=== PATIENT | female | born 1985 | race Caucasian/White ===

== ENCOUNTER 2018-12-15 21:54 | Observation (INO) | payer OTHER, SELFPAY ==
--- OUTSIDE RECORDS SUMMARY | 2018-12-15 21:56 | XMS REPORT | Clinical Summary ---
:1985 Author Organization [facility] Address [address] [place] [address] Care Team Providers Name Role Phone Juan C Martin MD Primary Care Provider Allergies No Known Allergies Medications Medication Sig Dispensed Refills Start Date End Date Status QUEtiapine (SEROquel) Take 600 mg by 0 Active 300 MG tablet mouth 2 (two) times a day. escitalopram (LEXAPRO) Take 10 mg by 0 Active 10 MG tablet mouth daily. Active Problems Problem Noted Date Accidental drug overdose 03/14/2018 Encounters Date Type Specialty Care Team Description 03/14/2018 Emergency General Internal Verna Alexis, Accidental drug overdose, initial encounter (Primary Dx); Medicine Urinary tract infection without hematuria, site unspecified Cherise Montoya MD Machineni, Madhavi, MD after 12/14/2017 Social History Tobacco Use Types Packs/Day Years Used Date Current Every Day Smoker Smokeless Tobacco: Never Used Alcohol Use Drinks/Week oz/Week Comments No Sex Assigned at Date Recorded Not on file Job Start Date Occupation Industry Not on file Not on file Not on file Travel History Travel Start Travel End No recent travel history available. Last Filed Vital Signs Vital Sign Reading Time Taken Blood Pressure 102/59 03/14/2018 4:23 PM CDT Pulse 62 03/14/2018 4:23 PM CDT Temperature 35.8 C (96.5 F) 03/14/2018 4:23 PM CDT Respiratory Rate 18 03/14/2018 4:23 PM CDT Oxygen Saturation 99% 03/14/2018 4:23 PM CDT Inhaled Oxygen Concentration - - Weight 65.8 kg (145 lb) 03/14/2018 1:05 AM CDT Height 149.9 cm (4' 11") 03/14/2018 1:05 AM CDT Body Mass Index 29.29 03/14/2018 1:05 AM CDT Plan of Treatment Health Maintenance Due Date Last Done Comments CERVICAL CANCER SCREENING 2007 INFLUENZA VACCINE 07/02/2018 Procedures Procedure Name Priority Date/Time Associated Comments Diagnosis US RENAL Routine 03/14/2018 2:40 Results for this PM CDT procedure are in the results section. URINE DRUGS OF ABUSE STAT 03/14/2018 2:37 Results for this SCREEN AM CDT procedure are in the results section. HCG QUALITATIVE, STAT 03/14/2018 2:37 Results for this URINE SCREEN AM CDT procedure are in the results section. URINALYSIS SCREEN AND STAT 03/14/2018 2:37 Results for this MICROSCOPY, WITH AM CDT procedure are in REFLEX TO CULTURE the results section. GRAM STAIN STAT 03/14/2018 2:32 Results for this AM CDT procedure are in the results section. URINE CULTURE STAT 03/14/2018 2:32 Results for this AM CDT procedure are in the results section. ECG 12-LEAD Routine 03/14/2018 1:58 Results for this AM CDT procedure are in the results section. ALCOHOL LEVEL, BLOOD STAT 03/14/2018 1:40 Results for this AM CDT procedure are in the results section. ZZESTIMATED GFR STAT 03/14/2018 1:40 Results for this AM CDT procedure are in the results section. BASIC METABOLIC PANEL STAT 03/14/2018 1:40 Results for this AM CDT procedure are in the results section. CREATINE KINASE, STAT 03/14/2018 1:40 Results for this TOTAL (CPK) AM CDT procedure are in the results section. HC COMPLETE BLD COUNT STAT 03/14/2018 1:40 Results for this W/AUTO DIFF AM CDT procedure are in the results section. after 12/14/2017 Results US Renal (03/14/2018 2:40 PM CDT) Narrative Performed At EXAMINATION:US RENAL [facility] CLINICAL HISTORY:Explore for possible renal calculi COMPARISON:None. Impression: Transverse and longitudinal sonographic images were obtained through the renal fossae and bladder. 1. The right kidney nrpeniar88.6 x 6.9 x 6.4 cm and left kidney 11.9 x 6.1 x 4.7 cm.. 2.Moderate right hydronephrosis is of unknown etiology. The kidneys otherwise and straight a normal sonographic appearance. There is no hydronephrosis on the left. 3.The bladder appears grossly normal. [id number] Procedure Note Interface, Radiology Results Incoming - 03/14/2018 5:18 PM CDT EXAMINATION: US RENAL CLINICAL HISTORY: Explore for possible renal calculi COMPARISON: None. Impression: Transverse and longitudinal sonographic images were obtained through the renal fossae and bladder. 1. The right kidney measures 12.6 x 6.9 x 6.4 cm and left kidney 11.9 x 6.1 x 4.7 cm.. 2. Moderate right hydronephrosis is of unknown etiology. The kidneys otherwise and straight a normal sonographic appearance. There is no hydronephrosis on the left. 3. The bladder appears grossly normal. [id number] Performing Organization Address City/State/Zipcode Phone Number [facility] [address] [place] [address] Urinalysis screen and microscopy, with reflex to culture (03/14/2018 2:37 AM CDT) Specimen site Clean catch [facility] DE[facility] OF PATHOLOGY AND GENOMIC MEDICINE Color, UA Yellow YELLOW [facility] DE[facility] OF PATHOLOGY AND GENOMIC MEDICINE Appearance, UA Clear Clear [facility] DEPARTMENT OF PATHOLOGY AND GENOMIC MEDICINE Specific gravity, UA 1.015 1.005 - 1.030 [facility] DEPARTMENT OF PATHOLOGY AND GENOMIC MEDICINE pH, UA 6.0 5.0 - 8.0 [facility] DEPARTMENT OF PATHOLOGY AND GENOMIC MEDICINE Protein, UA Trace (A) Negative [facility] DEPARTMENT OF PATHOLOGY AND GENOMIC MEDICINE Glucose, UA Negative Negative [facility] DEPARTMENT OF PATHOLOGY AND GENOMIC MEDICINE Ketones, UA Negative Negative [facility] DEPARTMENT OF PATHOLOGY AND GENOMIC MEDICINE Bilirubin, UA Negative Negative [facility] DEPARTMENT OF PATHOLOGY AND GENOMIC MEDICINE Blood, UA Small (A) Negative [facility] DEPARTMENT OF PATHOLOGY AND GENOMIC MEDICINE Nitrite, UA Negative NEGATIVE [facility] DEPARTMENT OF PATHOLOGY AND GENOMIC MEDICINE Urobilinogen, UA <2.0 <2.0 E.U./dL [facility] DEPARTMENT OF PATHOLOGY AND GENOMIC MEDICINE Leukocyte esterase, UA Large (A) Negative [facility] DEPARTMENT OF PATHOLOGY AND GENOMIC MEDICINE Epithelial cells, UA 6 0 - 15 /HPF [facility] DEPARTMENT OF PATHOLOGY AND GENOMIC MEDICINE WBC, UA 163 (H) 0 - 5 /Hpf [facility] DEPARTMENT OF PATHOLOGY AND GENOMIC MEDICINE RBC, UA 28 (H) 0 - 5 /HPF [facility] DEPARTMENT OF PATHOLOGY AND GENOMIC MEDICINE Bacteria, UA Few (A) None seen [facility] DEPARTMENT OF PATHOLOGY AND GENOMIC MEDICINE Yeast, UA Moderate (A) None Seen [facility] DEPARTMENT OF PATHOLOGY AND GENOMIC MEDICINE Yeast with pseudohyphae, UA None seen [facility] DEPARTMENT OF PATHOLOGY AND GENOMIC MEDICINE Hyaline casts, UA 0-2 0 - 1 [facility] DEPARTMENT OF PATHOLOGY AND GENOMIC MEDICINE Specimen Urine Performing Organization Address City/[facility]/Zipcode Phone Number [facility] DEPARTMENT OF PATHOLOGY AND [address] [place] [address] [address] [place] [address] [facility] hCG qualitative, urine screen (03/14/2018 2:37 AM CDT) hCG qualitative, urine NegativeComment: Negative [facility] DEPARTMENT OF Sensitivity of HCG test: 25 PATHOLOGY AND GENOMIC mIU/ml MEDICINE Specimen Urine Performing Organization Address City/[facility] Phone Number [facility] DEPARTMENT OF PATHOLOGY AND [address] [facility] [address] [place] [address] [facility] Urine drugs of abuse screen (03/14/2018 2:37 AM CDT) Amphetamine screen, urine Positive (A) [facility] DEPARTMENT OF PATHOLOGY AND GENOMIC MEDICINE Barbiturate screen, urine Negative [facility] DEPARTMENT OF PATHOLOGY AND GENOMIC MEDICINE Benzodiazepine screen, Negative [facility] DEPARTMENT OF urine PATHOLOGY AND GENOMIC MEDICINE Cannabinoid screen, urine Negative [facility] DEPARTMENT OF PATHOLOGY AND GENOMIC MEDICINE Cocaine screen, urine Negative [facility] DEPARTMENT OF PATHOLOGY AND GENOMIC MEDICINE Methadone metabolite Negative [facility] DEPARTMENT OF (EDDP), urine PATHOLOGY AND GENOMIC MEDICINE Opiates screen, urine Negative [facility] DEPARTMENT OF PATHOLOGY AND GENOMIC MEDICINE Oxycodone screen, urine Negative [facility] DEPARTMENT OF PATHOLOGY AND GENOMIC MEDICINE Phencyclidine screen, urine Negative [facility] DEPARTMENT OF PATHOLOGY AND GENOMIC MEDICINE Tricyclic screen, urine Positive (A) [facility] DEPARTMENT OF Comment: PATHOLOGY AND GENOMIC Drug screen minimum concentration of detectability MEDICINE Dmrzltaxlpnl1266 ng/mL Barbiturates 200 ng/mL Wluqdandgnvfnfi135 ng/mL Aaswfmm596 ng/mL Unhactrlq182 ng/mL Zrfnkqo096 ng/mL Lqzonavki911 ng/mL Phencyclidine 25 ng/mL Denfjodujjts44 ng/mL Otxdxollns9473 ng/mL Negative test results indicates presumptive evidence of lack of clinically significant drug concentration in this urine specimen. Positive test results are presumptive evidence of clinically significant drug concentration in this urine specimen. Testing performed for medical purposes only. Specimen Urine Performing Organization Address City/[facility]/Zipcode Phone Number [facility] DEPARTMENT OF PATHOLOGY AND [address] [facility] [address] [place] [address] [facility] MEDICINE Gram stain (03/14/2018 2:32 AM CDT) Gram stain result Moderate WBC's [facility] DEPARTMENT OF PATHOLOGY Occasional Budding yeast, pseudohyphae present AND GENOMIC MEDICINE Moderate Gram positive cocci in pairs Moderate Gram positive rods Comment: Specimen Information Specimen Source: Urine Specimen Site: Clean catch Specimen Urine Performing Organization Address City/[facility] Phone Number [facility] DEPARTMENT OF PATHOLOGY AND [address] [place] [address] [facility] Urine culture (03/14/2018 2:32 AM CDT) Urine culture isolate Yanet albicans [facility] DEPARTMENT OF 10-4 cfu/ml PATHOLOGY AND GENOMIC The performance characteristics of this assay on this isolate MEDICINE were validated by the Microbiology Laboratory at [facility].This source has not been approved by the U.S. Food and Drug Administration.The results are not intended to be used as the sole means for clinical diagnosis or patient management.The Microbiology Laboratory is authorized under the clinical Laboratory Improvement Amendments of 1988 (CLIA-88) to perform high complexity testing. The performance characteristics of this assay on this isolate were validated by the Microbiology Laboratory at [facility].This source has not been approved by the U.S. Food and Drug Administration.The results are not intended to be used as the sole means for clinical diagnosis or patient management.The Microbiology Laboratory is authorized under the clinical Laboratory Improvement Amendments of 1988 (CLIA-88) to perform high complexity testing. (A) Comment: Specimen Information Specimen Source: Urine Specimen Site: Clean catch Urine culture isolate Mixed Gram positive juventino [facility] DEPARTMENT OF 10-2 cfu/ml PATHOLOGY AND GENOMIC (A) MEDICINE Specimen Urine Performing Organization Address City/[facility] Phone Number [facility] DEPARTMENT OF PATHOLOGY AND [address] [place] [address] [facility] ECG 12 lead (03/14/2018 1:58 AM CDT) Ventricular rate 93 [facility] Atrial rate 93 [facility] NM interval 164 [facility] QRSD interval 88 [facility] QT interval 378 [facility] QTC interval 469 [facility] P axis 1 43 [facility] QRS axis 1 19 [facility] T wave axis 26 [facility] EKG impression Normal sinus rhythm-Cannot rule out Anterior [facility] MUSE infarct , age undetermined-Abnormal ECG-No previous ECGs available- Performing Organization Address City/[facility]/Zipcode Phone Number [facility] MUSE [address] [place] [address] Estimated GFR (03/14/2018 1:40 AM CDT) GFR Non Af Amer 83 mL/min/1.73 m2 [facility] DEPARTMENT OF PATHOLOGY AND GENOMIC MEDICINE GFR Af Amer >90 mL/min/1.73 m2 [facility] DEPARTMENT OF Comment: PATHOLOGY AND GENOMIC Chronic kidney disease: <60 mL/min/1.73m2 MEDICINE Kidney failure: <15 mL/min/1.73m2 The estimated GFR is calculated from the IDMS-traceable Modification of Diet in Renal Disease Equation. The accuracy of the calculation is poor when the creatinine is normal. Calculated values >90 mL/min/1.73m2 are not reported. This equation has not been validated in children (<18 years), women, the elderly (>70 years), or ethnic groups other than Caucasians and Americans. Specimen Plasma specimen Performing Organization Address [facility] Phone Number [facility] AND [address] [facility] [address] [place] [address] [facility] CBC with platelet and differential (03/14/2018 1:40 AM CDT) WBC 9.8 4.5 - 11.0 k/uL [facility] DEPARTMENT OF PATHOLOGY AND GENOMIC MEDICINE RBC 3.88 (L) 4.20 - 5.50 M/uL [facility] DEPARTMENT OF PATHOLOGY AND GENOMIC MEDICINE HGB 11.1 (L) 14.0 - 18.0 g/dL [facility] DEPARTMENT OF PATHOLOGY AND GENOMIC MEDICINE HCT 34.0 (L) 37.0 - 47.0 % [facility] DEPARTMENT OF PATHOLOGY AND GENOMIC MEDICINE MCV 87.6 82.0 - 100.0 fL [facility] DEPARTMENT OF PATHOLOGY AND GENOMIC MEDICINE MCH 28.6 27.0 - 34.0 pg [facility] DEPARTMENT OF PATHOLOGY AND GENOMIC MEDICINE MCHC 32.6 31.0 - 37.0 g/dL [facility] DEPARTMENT OF PATHOLOGY AND GENOMIC MEDICINE RDW - SD 48.9 37.0 - 55.0 fL [facility] DEPARTMENT OF PATHOLOGY AND GENOMIC MEDICINE MPV 8.9 8.8 - 13.2 fL [facility] DEPARTMENT OF PATHOLOGY AND GENOMIC MEDICINE Platelet count 487 (H) 150 - 400 K/uL [facility] DEPARTMENT OF PATHOLOGY AND GENOMIC MEDICINE Nucleated RBC 0.00 /100 WBC [facility] DEPARTMENT OF PATHOLOGY AND GENOMIC MEDICINE Neutrophils 71.5 (H) 39.0 - 69.0 % [facility] DEPARTMENT OF PATHOLOGY AND GENOMIC MEDICINE Lymphocytes 16.5 (L) 25.0 - 45.0 % [facility] DEPARTMENT OF PATHOLOGY AND GENOMIC MEDICINE Monocytes 8.4 0.0 - 10.0 % [facility] DEPARTMENT OF PATHOLOGY AND GENOMIC MEDICINE Eosinophils 2.6 0.0 - 5.0 % [facility] DEPARTMENT OF PATHOLOGY AND GENOMIC MEDICINE Basophils 0.7 0.0 - 1.0 % [facility] DEPARTMENT OF PATHOLOGY AND GENOMIC MEDICINE Immature granulocytes 0.3Comment: "Immature 0.0 - 1.0 % [facility] DEPARTMENT OF granulocytes" PATHOLOGY AND GENOMIC (promyelocytes, MEDICINE myelocytes, metamyelocytes) Specimen Blood Performing Organization Address City/[facility] Phone Number [facility] PATHOLOGY AND [address] [place], [place] [address]y. [address] Creatine kinase, total (CPK) (03/14/2018 1:40 AM CDT) Creatine kinase 70 35 - 200 U/L [facility] DEPARTMENT OF PATHOLOGY AND GENOMIC MEDICINE Specimen Plasma specimen Performing Organization Address City/[facility] Phone Number [facility] PATHOLOGY AND [address] [place], [place] [address]y. [address] Alcohol level, blood (03/14/2018 1:40 AM CDT) Alcohol None Detected mg/dl [facility] DEPARTMENT OF PATHOLOGY AND GENOMIC MEDICINE Alcohol percent None Detected 0.00 - 0.08 % [facility] DEPARTMENT OF Comment: PATHOLOGY AND GENOMIC Normal None Detected MEDICINE Legal Intoxication in [place]80 mg/dL (0.08%) - Whole Blood Toxic Mdeylkkgbtvhk111 mg/dL (0.2%) Potentially Rsyym300 - 500 mg/dL (0.35 - 0.5%) Specimen Blood Performing Organization Address City/[facility] Phone Number [facility] PATHOLOGY AND [address] [place], [place] [address]y. [address] [place] [id number] [facility] Basic metabolic panel (03/14/2018 1:40 AM CDT) Sodium 139 135 - 148 mEq/L [facility] DEPARTMENT OF PATHOLOGY AND GENOMIC MEDICINE Potassium 4.3 3.5 - 5.0 mEq/L [facility] DEPARTMENT OF PATHOLOGY AND GENOMIC MEDICINE Chloride 101 99 - 109 mEq/L [facility] DEPARTMENT OF PATHOLOGY AND GENOMIC MEDICINE CO2 23 (L) 24 - 31 mEq/L [facility] DEPARTMENT OF PATHOLOGY AND GENOMIC MEDICINE Anion gap 15 7 - 15 mEq/L [facility] DEPARTMENT OF Comment: PATHOLOGY AND GENOMIC Starting from March , anion gap calculation MEDICINE no longer incorporates potassium. Please note the change. BUN 19 8 - 24 mg/dL [facility] DEPARTMENT OF PATHOLOGY AND GENOMIC MEDICINE Creatinine 0.8 0.5 - 1.5 mg/dL [facility] DEPARTMENT OF PATHOLOGY AND GENOMIC MEDICINE Glucose 115 (H) 65 - 99 mg/dL [facility] DEPARTMENT OF PATHOLOGY AND GENOMIC MEDICINE Calcium 9.2 8.6 - 10.6 mg/dL [facility] OF PATHOLOGY AND GENOMIC MEDICINE Specimen Plasma specimen Performing Organization Address City/State/Zipcode Phone Number [facility] PATHOLOGY AND [address] [facility] [address] [place] [address] [facility] after 12/14/2017 Advance Directives Patient has advance care planning documents on file. For more information, please contact:Aldo Santiago[address] [place] [address]
[2018-12-15 22:56] LABS: Absolute Lymphocytes (CBC) 2.4 K/uL (0.7-4.9); Absolute Monocytes 1.4 K/uL (0.1-1.3); Absolute Neutrophil 16.3 K/uL (1.8-8.0); Basophils % 2.3 % (0-1.3); Eosinophils % 1.4 % (0-4.4); Hematocrit 31.1 % (36.0-45.0); Lymphocytes % 11.5 % (15.3-44.8); MPV 7.6 fL (7.6-11.3); Monocytes % 6.5 % (3.3-12.3); RBC Red Blood Cell Count 3.54 M/uL (3.86-4.86)
[2018-12-15] MEDS ORDERED: FENTANYL CITR 100 MCG/2 ML ONE (23:16)
[2018-12-15] MEDS ORDERED: NA CHLORIDE 0.9% 1,000 ML ONE (23:17)
[2018-12-15] MEDS ORDERED: OXYTOCIN/LR 20 UNIT/1,000 ML BAG IV ONE (23:32)
[2018-12-15] MEDS ORDERED: METHYLERGONOVINE 0.2MG/ML AMP IM ONE (23:32)
[2018-12-15 23:34] LABS: Potassium 3.5 mmol/L (3.5-5.1)
[2018-12-16 00:03] LABS: Blood Morphology Comment NOT SEEN (NOT SEEN); Platelet Estimate ADEQ
--- NOTE | 2018-12-16 00:10 | ER ---
Nurse's Notes [facility] Name: Blanca Collazo Age: 33 yrs Sex: Female : 1985 Arrival Date: 12/15/2018 Time: 21:54 Bed 2 Private MD: Diagnosis: hemorrhage Presentation: 12/15 22:02 Presenting complaint: Patient states: she is having vaginal bleeding and abdominal bb cramping starting today states she might be she does not know when her last menstrual cycle was. Transition of care: patient was not received from another setting of care. Onset of symptoms was December 15, 2018. Risk Assessment: Do you want to hurt yourself or someone else? Patient reports no desire to harm self or others. Initial Sepsis Screen: Does the patient meet any 2 criteria? No. Patient's initial sepsis screen is negative. Does the patient have a suspected source of infection? No. Patient's initial sepsis screen is negative. Care prior to arrival: None. 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 - Social history:: Smoking status: Patient uses tobacco products, smokes one-half pack cigarettes per day, Patient/guardian denies using alcohol, street drugs. - Ebola Screening: : No symptoms or risks identified at this time. Screenin:30 Abuse screen: Denies threats or abuse. Denies injuries from another. Nutritional rr5 screening: No deficits noted. Tuberculosis screening: No symptoms or risk factors identified. Fall Risk IV access (20 points). Total Wisdom Fall Scale indicates No Risk (0-24 pts). Assessment: 22:05 General: Appears in no apparent distress. uncomfortable, Behavior is calm, cooperative, rr5 appropriate for age. Pain: Complains of pain in vagina Pain does not radiate. Pain Quality of pain is described as aching, Pain began gradually, Is intermittent. 22:05 Neuro: Level of Consciousness is awake, alert, obeys commands, Oriented to person, rr5 place, time, situation, Appropriate for age. Cardiovascular: Capillary refill < 3 seconds Patient's skin is warm and dry. Respiratory: Airway is patent Respiratory effort is even, unlabored, Respiratory pattern is regular, symmetrical. GI: No signs and/or symptoms were reported involving the gastrointestinal system. : Vaginal discharge is bloody, Reports vaginal bleeding that is bright red, with clots. EENT: No signs and/or symptoms were reported regarding the EENT system. Derm: Skin is intact, Skin temperature is warm. Musculoskeletal: Capillary refill < 3 seconds, Range of motion: intact in all extremities. 22:35 Reassessment: Patient appears in no apparent distress at this time. No changes from rr5 previously documented assessment. patient cannot tolerate the pelvic exam. Assisted by ARANZA gleason. 23:15 Reassessment: Pt brought to ER 2 from Pod 2. Pt experiencing heavy vaginal bleeding and aa1 is thrashing around in stretcher. Large amount of material passed from vaginal canal and fetus noted to be present. Provider notified and specimen collected and sent to lab. 23:30 Reassessment: Patient appears in no apparent distress at this time. Reassessment: Pt aa1 cleaned of expelled blood from vagina. Placed in brief and gown and linens changed. General: Behavior is agitated, restless, uncooperative. Neuro: Level of Consciousness is awake, alert. Respiratory: Respiratory effort is unlabored, Respiratory pattern is tachypnea. Derm: Skin is intact, is healthy with good turgor, Skin is pink, warm \\T\\ dry. 23:55 Reassessment: Dr. Flores at bedside for pelvic exam. Pt states, "Just stop this fucking aa1 pitocin and do a fucking D \\T\\ C already, shit!" Per Dr. Flores pt to go to OR for D \\T\\ C. 12/16 00:03 Reassessment: Pt states, "Get this fucking pitocin off me. I refuse this pitocin. If aa1 you don't get this fucking pitocin off me or I'm going to rip this fucking IV out." Pitocin infusion stopped at this time, provider notified and will remedicate with Fentanyl. 00:21 Reassessment: Dr. Cool anesthesiologist at bedside for pre-op evaluation. aa1 00:44 Reassessment: OR team present to take pt to surgery. While giving report to OR nurse aa1 pt's boyfriend left which caused pt to become upset. Pt got up from stretcher and pulled off monitoring equipment. When attempted to prevent pt from getting up pt states, "Get the fuck off me. I'm not fucking staying here if he's fucking leaving." Pt then walked out from exam room, down ER hallway into the lobby and proceeded to walk out into parking lot. Pt became very weak and was assisted into wheelchair by charge nurse. Her boyfriend was located in parking lot by staff and returned to ED. Pt agrees to go with staff to OR now that her boyfriend has returned. Pt does not appear in any distress at this time. Awake \\T\\ alert, respirations even \\T\\ unlabored, skin warm and dry. Vital Signs: 12/15 22:05 BP 124 / 56; Pulse 122; Resp 18 S; Temp 98.6(O); Pulse Ox 98% on R/A; Weight 56.7 kg bb (R); Height 4 ft. 11 in. (149.86 cm) (R); Pain 7/10; 23:00 BP 118 / 68; Pulse 105; Resp 24; Pulse Ox 99% on R/A; Pain 10/10; aa1 12/16 00:00 BP 132 / 80; Pulse 105; Resp 22; Pulse Ox 100% on R/A; mt 00:22 BP 106 / 88; Pulse 117; Resp 26; Pulse Ox 99% on R/A; Pain 10/10; aa1 12/15 22:05 Body Mass Index 25.25 (56.70 kg, 149.86 cm) ED Course: 12/15 21:54 Patient arrived in ED. bb 22:04 Triage completed. bb 22:05 Arm band placed on Patient placed in an exam room, on a stretcher, on pulse oximetry. bb 22:09 Inserted saline lock: 20 gauge in left antecubital area, using aseptic technique. Blood ea collected. 22:24 Aly Ledezma PA is PHCP. jr8 22:24 Jony Amador MD is Attending Physician. jr8 22:30 Assist provider with pelvic exam: Set up pelvic tray. Performed by Aly JAMES rr5 Patient tolerated poorly. patient cannot tolerate the procedure. assisted by [employer] technology transactions attorney victorino. 22:34 Blue Roth, RN is Primary Nurse. rr5 23:35 IV discontinued, intact, bleeding controlled, No redness/swelling at site. IV to LAC no aa1 longer flushes and no blood return. 23:40 Inserted 18 gauge 10 cm midline to left upper arm basilic vein on first attempt. Line fc with good blood return and flushes well. 12/16 00:09 Yovany Flores MD is Hospitalizing Provider. jr8 Administered Medications: 12/15 23:20 Drug: fentaNYL (PF) 50 mcg Route: IVP; Site: left antecubital; aa1 23:20 Drug: NS 0.9% 1000 ml Route: IV; Rate: 1000 ml; Site: left antecubital; aa1 23:35 Drug: METHERgine 0.2 mg Route: IM; Site: right vastus lateralis; aa1 23:45 Drug: Pitocin 20 units Route: IV; Rate: calculated rate; Site: left upper arm; aa1 12/16 00:05 Drug: fentaNYL (PF) 50 mcg Route: IVP; Site: left upper arm; aa1 Outcome: 00:09 Decision to Hospitalize by Provider. jr8 00:44 Admitted to OR accompanied by nurse, accompanied by tech, family with patient, with aa1 chart, Other bedside report given to OR staff 00:44 Condition: stable 00:44 Discharge instructions given to patient, significant other, Instructed on the need for admit, Demonstrated understanding of instructions. 01:04 Patient left the ED. aa1 Signatures: Lilli Aviles RN RN aa1 Anny Akhtar RN RN fc Ballard, Brenda, RN RN bb Roszak, Josh, PA PA jr8 Alyssa Kline mt, Elena, RN RN ea Roque, Raymond, RN RN rr5
--- NOTE | 2018-12-16 00:11 | EDPHYS ---
Physician Documentation [facility] Name: Blanca Collazo Age: 33 yrs Sex: Female : 1985 Arrival Date: 12/15/2018 Time: 21:54 Bed 2 Private MD: ED Physician Jony Amador HPI: 12/15 22:59 This 33 yrs old Female presents to ER via Ambulatory with complaints of jr8 Vaginal Bleeding. 22:59 Onset: The symptoms/episode began/occurred acutely, today. Modifying factors: The jr8 symptoms are alleviated by nothing, the symptoms are aggravated by nothing. Associated signs and symptoms: The patient has no apparent associated signs or symptoms. Severity of symptoms: At their worst the symptoms were moderate, in the emergency department the symptoms are unchanged. The patient has experienced a previous episode. The patient has not recently seen a physician. 23:52 Patient stated that she took out her own IUD about 1-2 months ago. Has had sexual jr8 intercourse since then. Came in to ED today for vaginal bleeding . 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 - Social history:: Smoking status: Patient uses tobacco products, smokes one-half pack cigarettes per day, Patient/guardian denies using alcohol, street drugs. - Ebola Screening: : No symptoms or risks identified at this time. ROS: 23:52 Eyes: Negative for injury, pain, redness, and discharge, ENT: Negative for injury, jr8 pain, and discharge, Neck: Negative for injury, pain, and swelling, Cardiovascular: Negative for chest pain, palpitations, and edema, Respiratory: Negative for shortness of breath, cough, wheezing, and pleuritic chest pain, Abdomen/GI: Negative for abdominal pain, nausea, vomiting, diarrhea, and constipation, Back: Negative for injury and pain, MS/Extremity: Negative for injury and deformity, Skin: Negative for injury, rash, and discoloration, Neuro: Negative for headache, weakness, numbness, tingling, and seizure. 23:52 : Positive for vaginal bleeding, menstrual abnormality. Exam: 23:52 Eyes: Pupils equal round and reactive to light, extra-ocular motions intact. Lids and jr8 lashes normal. Conjunctiva and sclera are non-icteric and not injected. Cornea within normal limits. Periorbital areas with no swelling, redness, or edema. ENT: Nares patent. No nasal discharge, no septal abnormalities noted. Tympanic membranes are normal and external auditory canals are clear. Oropharynx with no redness, swelling, or masses, exudates, or evidence of obstruction, uvula midline. Mucous membranes moist. Neck: Trachea midline, no thyromegaly or masses palpated, and no cervical lymphadenopathy. Supple, full range of motion without nuchal rigidity, or vertebral point tenderness. No Meningismus. Respiratory: Lungs have equal breath sounds bilaterally, clear to auscultation and percussion. No rales, rhonchi or wheezes noted. No increased work of breathing, no retractions or nasal flaring. Abdomen/GI: Soft, non-tender, with normal bowel sounds. No distension or tympany. No guarding or rebound. No evidence of tenderness throughout. Back: No spinal tenderness. No costovertebral tenderness. Full range of motion. Skin: Warm, dry with normal turgor. Normal color with no rashes, no lesions, and no evidence of cellulitis. MS/ Extremity: Pulses equal, no cyanosis. Neurovascular intact. Full, normal range of motion. Neuro: Awake and alert, GCS 15, oriented to person, place, time, and situation. Cranial nerves II-XII grossly intact. Motor strength 5/5 in all extremities. Sensory grossly intact. Cerebellar exam normal. Normal gait. 23:52 Cardiovascular: Rate: tachycardic, Rhythm: regular, Pulses: Pulses are 2+ in right radial artery and left radial artery. Heart sounds: normal, normal S1and S2, no S3 or S4, no murmur, no rub, no gallop, Edema: is not appreciated, JVD: is not appreciated. 23:52 : Pelvic Exam: External exam: is normal, no appreciated Bartholin's cyst, no erythema, not excoriated, no evidence of foreign body, no lesions, no ulcerations, no warts seen, Speculum exam: moderate bleeding, blood clots in vaginal vault, os that is open, the nurse was present for the exam. Vital Signs: 22:05 BP 124 / 56; Pulse 122; Resp 18 S; Temp 98.6(O); Pulse Ox 98% on R/A; Weight 56.7 kg bb (R); Height 4 ft. 11 in. (149.86 cm) (R); Pain 7/10; 23:00 BP 118 / 68; Pulse 105; Resp 24; Pulse Ox 99% on R/A; Pain 10/10; aa1 12/16 00:00 BP 132 / 80; Pulse 105; Resp 22; Pulse Ox 100% on R/A; mt 00:22 BP 106 / 88; Pulse 117; Resp 26; Pulse Ox 99% on R/A; Pain 10/10; aa1 12/15 22:05 Body Mass Index 25.25 (56.70 kg, 149.86 cm) bb MDM: 12/15 22:24 Patient medically screened. jr8 23:22 ED course: Dr. Flores consulted and is coming to see patient. Patient passed non viable jr8 fetus intact. Fetus and placenta sent to pathology . 23:52 ED course: Patient has been very irate since in the ED. Patient will not sit still to jr8 let us fully evaluate her. Patient would not let us complete vaginal exam to see how much hemorrhage was going on. Patient would not sit still for US that was ordered to determine the problem. We could not get urine from her either. Patient passed a non viable fetus which was sent to pathology. After we were able to establish another IV after her pulling that one, Dr. Flores was able to assess patient and determined that she needs to go to surgery. Patient will go to surgery but is refusing Pitocin. Discussed with her the risks of stopping it and why we are needing to use that particular medication but still refuses it. . 12/16 00:09 Data reviewed: vital signs, nurses notes, lab test result(s). Data interpreted: Pulse jr8 oximetry: on room air is 100 %. Interpretation: normal. Counseling: I had a detailed discussion with the patient and/or guardian regarding: the historical points, exam findings, and any diagnostic results supporting the discharge/admit diagnosis, lab results, the need for further work-up and treatment in the hospital. 00:51 ED course: Patient just got up and out of her bed and walked out of ED. Nurses and jr8 security attempting to stop her . 12/15 22:25 Order name: Quantitative Hcg jr8 12/15 22:25 Order name: Abo/rh Typing jr8 12/15 22:25 Order name: Basic Metabolic Panel; Complete Time: 23:42 jr8 12/15 22:25 Order name: CBC with Diff; Complete Time: 00:12 jr8 12/15 22:25 Order name: HCG, Quantitative; Complete Time: 23:42 EDCT 12/15 22:25 Order name: ABO/RH typing EDCT 12/15 23:15 Order name: Manual Differential; Complete Time: 00:12 EDMS 12/15 22:25 Order name: IV Saline Lock; Complete Time: 22:35 jr8 12/15 22:25 Order name: Labs collected and sent; Complete Time: 22:35 8 12/15 22:25 Order name: NPO; Complete Time: 22:35 [facility] [place] Administered Medications: 12/15 23:20 Drug: fentaNYL (PF) 50 mcg Route: IVP; Site: left antecubital; aa1 23:20 Drug: NS 0.9% 1000 ml Route: IV; Rate: 1000 ml; Site: left antecubital; aa1 23:35 Drug: METHERgine 0.2 mg Route: IM; Site: right vastus lateralis; aa1 23:45 Drug: Pitocin 20 units Route: IV; Rate: calculated rate; Site: left upper arm; aa1 12/16 00:05 Drug: fentaNYL (PF) 50 mcg Route: IVP; Site: left upper arm; aa1 Disposition: 22:34 Co-signature as Attending Physician, Jony Amador MD I agree with the assessment and tw4 plan of care. Disposition: 12/16/18 00:09 Hospitalization ordered by Yovany Flores for Observation. Preliminary diagnosis is hemorrhage. - Bed requested for Operating Room. - Status is Observation. aa1 - Condition is Stable. - Problem is new. - Symptoms are unchanged. UTI on Admission? No Signatures: Dispatcher [employer] EDMS Lilli Aviles RN RN aa1 June Echeverria RN RN bb Aly Ledezma, PA PA jr8 Jony Amador MD MD tw4 Corrections: (The following items were deleted from the chart) 12/15 22:54 22:43 Transvaginal Ob+US.RAD.BRZ ordered. [facility] :15 22:54 Transvaginal Study Probe ordered. [facility] 12/16 00:12 12/15 23:52 ED course: Patient has been very irate since in the ED. Patient will not jr8 sit still to let us fully evaluate her. Patient would not let us complete vaginal exam to see how much hemorrhage was going on. Patient would not sit still for US that was ordered to determine the problem. We could not get urine from her either. Patient passed a non viable fetus which was sent to pathology. After we were able to establish another IV and calm patient down. Dr. Flores was able to assess patient and determined that she needs to go to surgery. Patient will go to surgery but is refusing Pitocin. Discussed with her the risks of stopping it and why we are needing to use that particular medication but still refuses it . jr8 12/16 01:04 00:09 Hospitalization Ordered by Yovany Flores MD for Observation. Preliminary aa1 diagnosis is hemorrhage. Bed requested for Operating Room. Status is Observation. Condition is Stable. Problem is new. Symptoms are unchanged. UTI on Admission? No. jr8
[2018-12-16] MEDS ORDERED: SILVER NITRATE 1 APPL TOP ONE (01:00)
[2018-12-16] MEDS ORDERED: FENTANYL CITR 100 MCG/2 ML ONE (01:01)
[2018-12-16] MEDS ORDERED: MIDAZOLAM HCL 2 MG/2 ML INJ ONE (01:01)
[2018-12-16] MEDS ORDERED: METHYLERGONOVINE 0.2MG/ML AMP IM ONE (01:01)
[2018-12-16] MEDS ORDERED: ETOMIDATE 20 MG/10 ML VIAL IV ONE (01:01)
[2018-12-16] MEDS ORDERED: ONDANSETRON 4 MG/2 ML VIAL ONE (01:01)
[2018-12-16] MEDS ORDERED: Ringers Lactate 0 ML IV ONE (01:08)
[2018-12-16] MEDS ORDERED: OXYTOCIN 10 UNIT/ML ML IV ONE ×2 (01:09→01:13)
[2018-12-16] MEDS ORDERED: NA CHLORIDE 0.9% 1,000 ML ONE (01:17)
[2018-12-16] MEDS ORDERED: CEFAZOLIN 1GM (PREMIX IV) 1 GM/50 ML BAG ONE (01:48)
[2018-12-16] MEDS ORDERED: ALBUMIN HUM 5% 250 ML IV ONE (01:54)
[2018-12-16] MEDS: MIDAZOLAM HCL 2 MG/2 ML INJ ONE ×4 (02:03→03:30)
[2018-12-16] MEDS: HYDROMORPHONE HCL 1 MG/ML INJ ONE ×2 (02:20→02:25)
[2018-12-16 02:34] VITALS: O2SAT 100
[2018-12-16] MEDS ORDERED: MEPERIDINE HCL 25 MG/0.5 ML IV ONE (03:07)
[2018-12-16] MEDS: KETOROLAC 30 MG/ML INJ IV ONE ×2 (03:07→03:15)
[2018-12-16] MEDS ORDERED: Oxycodone HCl/Acetaminophen 1 TAB TAB PO PRN ×2 (03:07)
[2018-12-16] MEDS ORDERED: MEPERIDINE HCL 25 MG/0.5 ML IV PRN (03:53)
[2018-12-16] MEDS ORDERED: NA CHLORIDE 0.9% 250 ML ONE (04:31)
--- NOTE | 2018-12-16 05:22 | PREOPHP ---
Date of Admission: 12/16/2018 History Of Present Illness: A 33-year-old female, 4 living pregnancies, 2 miscarriages. I was márquez d to the emergency room for the patient who passed a fully formed fetus. The patient states that she had had her control - Mirena removed at least 2 months and did not know she was . Whe n I came in, the patient was extremely uncooperative, using very foul language. She said she was ref using Pitocin. It was causing her to cramp. Apparently, had passed some parts of the placenta, but was still cramping severely and very difficult to do an examination on this patient. She wants a D a nd C to get this over with. I think it is probably the best option at this point. With the pelvic e xamination, I can feel the products of conception in the cervical os which was dilated to about 2.5 t o 3 cm, and the uterus still seems to be enlarged, although it is difficult to tell since the patient is thrashing about and cursing. She has not eaten since noon. She has had 50 of fentanyl in the em ergency room. Drug screen hopefully was drawn before that was given. Family History: No significant family history. Allergies: NO ALLERGIES REPORTED. Physical Examination: Heart and Lungs: Basically stable with heart and lungs normal. Breasts: Not examined. Abdomen: Soft. Extremities: Clear. Pelvic: As stated, very difficult if not impossible putting the speculum. The patient would not all ow it, and even pelvic examination was very difficult even with 2 nurses assisting. We will proceed with D and C. General anesthetic will be required really to do a good examination, a nd I do think the patient does have a retained products. So, we will proceed at this point and at her request. SAURABH/GLEN Voice ID: [id number]
[2018-12-16] MEDS ORDERED: QUETIAPINE 100MG TAB PO ONE (05:54)
[2018-12-16] MEDS ORDERED: Ringers Lactate 1,000 ML IV SCH (06:00)
[2018-12-16] MEDS ORDERED: D5LR 1,000 ML IV SCH (06:00)
[2018-12-16 06:05] VITALS: BP 108/68; TEMP 98.5; BMI 25.2
[2018-12-16] MEDS ORDERED: QUETIAPINE 100MG TAB ONE (06:08)
--- NOTE | 2018-12-16 07:26 | OP ---
Surgeon: Yovany Flores MD A 33-year-old female, 4 pregnancies successful, apparently 2 or more miscarriages. Preoperative Diagnosis: Incomplete spontaneous . Indications: The patient had come into the emergency room, very uncooperative, apparently has a hist ory of bipolar disorder, has not been taking her medicine. Her significant other is our source of in formation. She was started on IV, refused Pitocin even though she is bleeding heavily, was given Met hergine IM 1 time, passed the embryo and apparently some blood clots, but continued cramping and blee ding significantly. I discussed with the patient the situation. She basically demanded D and C, and of course, I agreed given the situation. Surgical crew was called. In the meantime, the patient at tempted to leave the hospital without clothing and trailing her IV, was restrained and brought back, and then consented to D and C, taken to surgery. Procedure In Detail: General anesthesia was employed. Endotracheal intubation, Dr. Cool. Time-o ut was performed. The patient was prepped and draped. The anterior cervical lip was grasped with ri ng clamp. A 10 mm curved suction curette was used to evacuate obviously significant amount of necrot ic placental tissues. Significant bleeding was encountered. IV drip Pitocin was started. Another d ose of Methergine 0.2 mg IM was given, and we also gave intracervical Pitocin 10 units. Estimated bl ood loss 650 cc. Blood pressures were in the 80/50 range. Type and crossmatch was ordered. In the meantime, she will be getting albumin. Bleeding is quite good at this time and in fact is completely stopped. We will observe the patient in the recovery room for least an hour or 2, then send her ups tairs to second floor for continued observation. Psychiatric consultation would be in order, but of course, we do not have that available. We will try to get her significant other to get her to start taking her medications and to take her to a mental health facility once she is discharge from the cur rent situation. Diagnoses: At this point is incomplete spontaneous , suction curettage and sharp curettement for procedure dilation and curettage. We have also ordered 1 g of Ancef to be given for prophylaxis . SAURABH/GLEN Voice ID: [id number] Report ID: [id number]
--- NOTE | 2018-12-16 07:36 | P.CNS ---
Date of Consult: 12/16/18 Reason for Consult: Patient with manic episode/code purple x2 Requesting Physician: Karen Flores Chief Complaint: Miscarriage History of Present Illness: Patient is a 33-year-old female who was admitted to the hospital with bleeding. Patient had a miscarriage. Patient was admitted for a dilatation and curettage. Patient was being very aggressive throughout her hospital stay. It appears she was having a manic episode. She has not been taking her Seroquel. She was real fidgety and she called the same number at least 20 times while I was talking to her. She appeared to be in a panic. Was a she was ready to leave but then go back to sitting down. We went ahead and game master 800 mg of Seroquel. Will reassess her later today. She is awake alert oriented to person and place and time. She has had it at leaving against medical advice. Mentally, although she is having a manic episode she is aware of her current circumstances and understands the risks she would take by leaving. She is psychiatrically able to make her own decision regarding her care going forward. Allergies No Known Drug Allergies Allergy (Unverified 04/21/15 16:25) Unknown No Known Allergies Allergy (Uncoded 08/08/16 18:52) Unknown Home Medications: Quetiapine [Seroquel*] 800 mg PO BEDTIME 12/16/18 - Past Medical/Surgical History Diabetic: No -: asthma -: CHF -: hypoglycemia -: chronic bronchitis -: Dilatation and curettage - Family History Father Family History: Reviewed- Non-Contributory - Social History Smoking Status: Current every day smoker Alcohol use: No CD- Drugs: No Caffeine use: Yes Review of Systems 10-point ROS is otherwise unremarkable Physical Examination Temp Pulse Resp BP Pulse Ox 98.5 F 91 H 16 108/68 98 12/16/18 05:20 12/16/18 05:20 12/16/18 05:20 12/16/18 05:20 12/16/18 05:20 General: Alert, In no apparent distress, Oriented x3 HEENT: Atraumatic, PERRLA, Mucous membr. moist/pink, EOMI, Sclerae nonicteric Neck: Supple, 2+ carotid pulse no bruit, No LAD, Without JVD or thyroid abnormality Respiratory: Clear to auscultation bilaterally, Normal air movement Cardiovascular: Regular rate/rhythm, Normal S1 S2, No murmurs Gastrointestinal: Normal bowel sounds, Soft and benign, Non-distended, No tenderness Musculoskeletal: No clubbing, No swelling, No tenderness Integumentary: No rashes Neurological: Normal gait, Normal speech, Normal strength at 5/5 x4 extr, Normal tone, Normal affect Lymphatics: No axilla or inguinal lymphadenopathy Laboratory Data (last 24 hrs) 12/15/18 22:30: WBC 20.9 H*, Hgb 10.5 L, Hct 31.1 L, Plt Count 747 H 12/15/18 22:30: Sodium 136, Potassium 3.5, BUN 17, Creatinine 0.75, Glucose 100 - Problems (1) Miscarriage Onset Date: 08/09/16 Current Visit: Yes Status: Acute (2) S/P D&C (status post dilation and curettage) Onset Date: 08/09/16 Current Visit: Yes Status: Acute (3) Bipolar 1 disorder Current Visit: Yes Status: Acute Conclusions/ Impression: Plan: 1. Management per OB regarding miscarriage 2. Resume Seroquel 3. Patient is okay to discharge home if medically stable per OBGYN Critical Care: No Time Spent Managing Pts care (In Minutes): 45
[2018-12-16] MEDS ORDERED: QUETIAPINE 100MG TAB PO SCH (20:00)
--- NOTE | 2018-12-17 03:53 | DS ---
Date of Discharge: 12/16/2018 Hospital Course: This is a 33-year-old multiparous patient who came into the emergency room with spo ntaneous incomplete . The patient has a history of severe manic depression and was not on he r medications for some time prior to admission according to her significant other. She refused Pitoc in. She refused basically medical treatment and had to be restrained at one point, left the hospital and was restrained by her significant other who brought her back. She did request D and C, this was performed. She had a 650 cc blood loss at the time of the surgery, because of the hypotonic uterus was given the uterotonics including Pitocin, Methergine and intracervical Pitocin. D and C was accom plished and she was transferred to the second floor. At that point, she became disruptive, also had a history of staph infections and was then transferred to the fourth floor. Blood transfusion was ord ered but in the middle of the first unit of packed cells, she took out her IVs and left AMA with one of her family members. Obviously, she is not going to follow up with me. She was Rh positive theref ore RhoGAM was not a problem. She was given 1 g of Ancef. Bleeding was scant after the D and C, so I think she should do well from a gynecologic standpoint. From a psychiatric standpoint, however, th at is another question. It would be nice if family would take her to a facility. She is apparently being seen by Zhang Saenz in [place] and hopefully will contact him for followup. Final Diagnoses: First trimester spontaneous incomplete . Suction curettage-curettement for uterine evacuation. Extremely uncooperative patient with a psychiatric history who left against med ical advice. NBC/MODL Voice ID: [id number] Report ID: [id number]
== END 2018-12-16 07:30 | disposition left against medical advice (07) ==
LOC: ER 21:54 → ERHOLD 12-16 00:09 → 2ND-WC 12-16 02:29 → 4TH 12-16 03:58
PROVIDERS: ADMIT Specialist; ATTEND Specialist
PROC: 10D17ZZ Extraction of Products of Conception, Retained, Via Natural or Artificial Opening (ICD-10-PCS; principal; 2018-12-16 01:00)
DX: O03.4 Incomplete spontaneous abortion without complication (principal); O62.2 Other uterine inertia; F31.9 Bipolar disorder, unspecified; Z53.21 Procedure and treatment not carried out due to patient leaving prior to being seen by health care provider
CPT/HCPCS: 36415; 80048; 84702; 85025; 86850; 86900; 86901; 88300; 88305; 96372; 99285; G0378; J0690; J1170; J2210; J2250; J2405; J2590; J3010; J7030; P9016; P9045

== ENCOUNTER 2019-09-30 21:48 | Emergency (ER) | payer SELFPAY ==
[2019-09-30] MEDS ORDERED: LIDOCAINE 1% MPF 5 ML VIAL ONE (22:11)
[2019-09-30] MEDS ORDERED: TETANUS & DIPHTHERIA TOX,ADULT 0.5 ML VIAL ONE (22:12)
[2019-09-30] MEDS ORDERED: DIAZEPAM 10 MG/2 ML INJ SYRINGE ONE (22:12)
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
--- NOTE | 2019-09-30 23:43 | EDPHYS ---
Physician Documentation [facility] Name: Blanca Collazo Age: 34 yrs Sex: Female : 1985 Arrival Date: 09/30/2019 Time: 21:49 Bed 7 Private MD: ED Physician Jony Amador HPI: 09/30 22:22 This 34 yrs old Female presents to ER via Ambulatory with complaints of Fall snw Injury, Laceration To Scalp/Face. 22:22 Details of fall: The patient fell from a height, down approximately 4 stairs. Onset: snw The symptoms/episode began/occurred suddenly, just prior to arrival. Associated injuries: The patient sustained injury to the head, laceration, of the upper lip, pain, tenderness. Severity of symptoms: At their worst the symptoms were moderate. The patient has not experienced similar symptoms in the past. It is unknown whether or not the patient has recently seen a physician. pt states she was coming out of the attic and missed a step, falling, she struck her face and sustained a laceration . 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 - Social history:: Smoking status: unknown. - Ebola Screening: : No symptoms or risks identified at this time. ROS: 22:22 Constitutional: Negative for fever, chills, and weight loss, Eyes: Negative for injury, snw pain, redness, and discharge, Neck: Negative for injury, pain, and swelling, Cardiovascular: Negative for chest pain, palpitations, and edema, Respiratory: Negative for shortness of breath, cough, wheezing, and pleuritic chest pain, Abdomen/GI: Negative for abdominal pain, nausea, vomiting, diarrhea, and constipation, Back: Negative for injury and pain, : Negative for injury, bleeding, discharge, and swelling, MS/Extremity: Negative for injury and deformity, Skin: Negative for injury, rash, and discoloration, Neuro: Negative for headache, weakness, numbness, tingling, and seizure. 22:22 ENT: Positive for injury or acute deformity, contusion, laceration, Teeth pain Exam: 22:20 Constitutional: This is a well developed, well nourished patient who is awake, alert, snw and in no acute distress. Head/Face: Normocephalic, atraumatic. Eyes: Pupils equal round and reactive to light, extra-ocular motions intact. Lids and lashes normal. Conjunctiva and sclera are non-icteric and not injected. Cornea within normal limits. Periorbital areas with no swelling, redness, or edema. ENT: Nares patent. No nasal discharge, no septal abnormalities noted. Tympanic membranes are normal and external auditory canals are clear. Oropharynx with no redness, swelling, or masses, exudates, or evidence of obstruction, uvula midline. Mucous membranes with tenderness, upper lip with midline laceration, mild bleeding, teeth feel secure. Neck: Trachea midline, no thyromegaly or masses palpated, and no cervical lymphadenopathy. Supple, full range of motion without nuchal rigidity, or vertebral point tenderness. No Meningismus. Chest/axilla: Normal chest wall appearance and motion. Nontender with no deformity. No lesions are appreciated. Cardiovascular: Regular rate and rhythm with a normal S1 and S2. No gallops, murmurs, or rubs. Normal PMI, no JVD. No pulse deficits. Respiratory: Lungs have equal breath sounds bilaterally, clear to auscultation and percussion. No rales, rhonchi or wheezes noted. No increased work of breathing, no retractions or nasal flaring. Abdomen/GI: Soft, non-tender, with normal bowel sounds. No distension or tympany. No guarding or rebound. No evidence of tenderness throughout. Back: No spinal tenderness. No costovertebral tenderness. Full range of motion. Skin: Warm, dry with normal turgor. Normal color with no rashes, no lesions, and no evidence of cellulitis. MS/ Extremity: Pulses equal, no cyanosis. Neurovascular intact. Full, normal range of motion. Neuro: Awake and alert, GCS 15, oriented to person, place, time, and situation. Cranial nerves II-XII grossly intact. Motor strength 5/5 in all extremities. Sensory grossly intact. Cerebellar exam normal. Normal gait. 22:20 Psych: Behavior/mood is anxious, uncooperative, inappropriate for age, Affect is animated, Oriented to person, place, time. Vital Signs: 22:00 BP 149 / 103; Pulse 77; Resp 16 S; Temp 97.5(A); Pulse Ox 100% on R/A; Weight 54.43 kg bb (R); Height 4 ft. 11 in. (149.86 cm) (R); Pain 7/10; 23:00 BP 133 / 75; Pulse 79; Resp 16; Pulse Ox 98% on R/A; rr5 10/01 00:00 BP 121 / 75; Pulse 75; Resp 17; Temp 97.6; Pulse Ox 99% ; rr5 09/30 22:00 Body Mass Index 24.24 (54.43 kg, 149.86 cm) bb Aron Coma Score: 09/30 22:00 Eye Response: spontaneous(4). Verbal Response: oriented(5). Motor Response: obeys bb commands(6). Total: 15. 23:00 Eye Response: spontaneous(4). Verbal Response: oriented(5). Motor Response: obeys rr5 commands(6). Total: 15. 10/01 00:00 Eye Response: spontaneous(4). Verbal Response: oriented(5). Motor Response: obeys rr5 commands(6). Total: 15. Trauma Score (Adult): 09/30 22:00 Eye Response: spontaneous(1); Verbal Response: oriented(1); Motor Response: obeys bb commands(2); Systolic BP: > 89 mm Hg(4); Respiratory Rate: 10 to 29 per min(4); Aron Score: 15; Trauma Score: 12 Laceration: 23:39 Wound Repair of 2.5cm ( 1.0in ) muscle penetrating laceration to lower lip and upper snw lip. Irregularly shaped.. Distal neuro/vascular/tendon intact. Anesthesia: Wound infiltrated with 8 mls of 1% lidocaine. Wound prep: Simple cleansing with hibiclenz by nurse by sd. Skin closed with 5 4-0 chromic using buried stitches. Skin closed with 1 4-0 chromic using buried stitch to lower lip. Patient tolerated poorly. MDM: 22:07 Patient medically screened. snw 23:43 Data reviewed: vital signs, nurses notes. Data interpreted: Pulse oximetry: on room air snw is 100 %. Interpretation: normal. Counseling: I had a detailed discussion with the patient and/or guardian regarding: the historical points, exam findings, and any diagnostic results supporting the discharge/admit diagnosis, the presence of at least one elevated blood pressure reading (>120/80) during this emergency department visit, radiology results, the need for outpatient follow up, to return to the emergency department if symptoms worsen or persist or if there are any questions or concerns that arise at home. Special discussion: Based on the patient's history, exam and DX evaluation, there is no indication for emergent intervention or inpatient TX. It is understood by the patient/guardian that if the SXs persist or worsen they need to return immediately for re-evaluation. Based on the history and exam findings, there is no indication for further emergent testing or inpatient evaluation. I discussed with the patient/guardian the need to see the primary care provider for further evaluation of the symptoms. 09/30 22:09 Order name: CT Facial Bones W/O Con snw 09/30 22:09 Order name: CT Head C Spine snw 09/30 22:09 Order name: Wound Care; Complete Time: 23:23 snw 09/30 22:09 Order name: Dressing - Wound; Complete Time: 23:24 snw 09/30 22:09 Order name: Gloves, Sterile; Complete Time: 23:24 snw 09/30 22:09 Order name: Setup Suture Tray; Complete Time: 23:24 snw Administered Medications: 22:23 Drug: Valium 5 mg Route: IVP; Site: right antecubital; rr5 23:00 Follow up: Response: No adverse reaction; Pain is unchanged, physician notified rr5 22:23 Not Given (Patient Refused): Tetanus-Diphtheria Toxoid Adult 0.5 ml IM once rr5 23:24 Drug: Lidocaine (1 %) 5 mg {Note: given by vi.} Route: Infiltration; rr5 10/01 00:00 Follow up: Response: No adverse reaction rr5 09/30 23:45 Drug: [place] 10 mg-325 mg 1 tabs {Note: RASS 0.} Route: PO; rr5 10/01 00:00 Follow up: Response: No adverse reaction; Medication administered at discharge. rr5 09/30 23:46 Drug: Zofran 4 mg Route: PO; rr5 10/01 00:00 Follow up: Response: No adverse reaction; Medication administered at discharge. rr5 Disposition: 09/30/19 23:42 Discharged to Home. Impression: Fall (on) (from) unspecified stairs and steps, Laceration of lip and oral cavity without foreign body, Unspecified injury of head. - Condition is Stable. - Discharge Instructions: Head Injury, Adult, Fall Prevention in the Home, Facial Laceration. - Prescriptions for Augmentin 875- 125 mg Oral Tablet - take 1 tablet by ORAL route every 12 hours for 10 days; 20 tablet. Mobic 7.5 mg Oral Tablet - take 1 tablet by ORAL route once daily take with food; 20 tablet. - Medication Reconciliation Form, Thank You Letter, Antibiotic Education, Prescription Opioid Use, Work release form form. - Follow up: Private Physician; When: 2 - 3 days; Reason: Recheck today's complaints, Continuance of care, Re-evaluation by your physician. Follow up: Emergency Department; When: As needed; Reason: Worsening of condition. Addendum: 10/05/2019 05:42 Co-signature as Attending Physician, Jony Amador MD I agree with the assessment and t w4 plan of care. Signatures: Dispatcher [employer] EDMS iV Hernandez, ZACKERY-C DYER ASSISTANT-Csnw June Echeverria, RN RN Jony Macdonald MD MD tw4 Blue Roth RN RN rr5 Corrections: (The following items were deleted from the chart) 09/30 23:46 23:42 09/30/2019 23:42 Discharged to Home. Impression: Fall (on) (from) unspecified snw stairs and steps; Laceration of lip and oral cavity without foreign body. Condition is Stable. Forms are Medication Reconciliation Form, Thank You Letter, Antibiotic Education, Prescription Opioid Use. Follow up: Private Physician; When: 2 - 3 days; Reason: Recheck today's complaints, Continuance of care, Re-evaluation by your physician. Follow up: Emergency Department; When: As needed; Reason: Worsening of condition. snw 10/01 00:02 09/30 23:46 09/30/2019 23:42 Discharged to Home. Impression: Fall (on) (from) rr5 unspecified stairs and steps; Laceration of lip and oral cavity without foreign body; Unspecified injury of head. Condition is Stable. Discharge Instructions: Head Injury, Adult, Fall Prevention in the Home, Facial Laceration. Prescriptions for Augmentin 875-125 mg Oral Tablet - take 1 tablet by ORAL route every 12 hours for 10 days; 20 tablet, Mobic 7.5 mg Oral Tablet - take 1 tablet by ORAL route once daily take with food; 20 tablet. and Forms are Medication Reconciliation Form, Thank You Letter, Antibiotic Education, Prescription Opioid Use. Follow up: Private Physician; When: 2 - 3 days; Reason: Recheck today's complaints, Continuance of care, Re-evaluation by your physician. Follow up: Emergency Department; When: As needed; Reason: Worsening of condition. snw
[2019-09-30] MEDS ORDERED: ONDANSETRON 4 MG (ODT) TAB ONE (23:47)
[2019-09-30] MEDS ORDERED: HYDROCODONE/APAP 10/325 TAB ONE (23:47)
[2019-10-01 00:36] VITALS: BP 121/75; TEMP 97.6; O2SAT 99
--- NOTE | 2019-10-01 11:16 | RAD REPORT ---
EXAM DESCRIPTION: CT - Facial Bones W/ Mpr - 10/01/2019 4:14 am CLINICAL HISTORY: 34 years Female FACIAL PAIN TECHNIQUE: Contiguous axial images obtained through the face and paranasal sinuses following IV cont rast. Coronal and sagittal reformatted images provided. This CT exam was performed according to our departmental dose-optimization program, which includes on e or more of the following dose reduction techniques: automated exposure control, adjustment of the m A and/or kV according to patient size, and/or use of iterative reconstruction technique. COMPARISON: No prior exams provided for comparison. FINDINGS: Metallic stud in the skin lateral to the left orbit. There is left infraorbital soft tissue swelling without soft tissue gas. There is swelling and lacera tion of the upper lip without radiodense foreign body. There is swelling of the lower lip without vis ualized soft tissue gas. Nondisplaced bilateral nasal bone fractures are of unclear acuity. No other facial or mandibular frac ture. Slight bilateral anterior temporomandibular joint subluxation without dislocation. This could b e related to jaw positioning. Intraorbital soft tissue structures are intact bilaterally. The paranasal sinuses and mastoid air alethea ls are clear. IMPRESSION: Left infraorbital soft tissue swelling. Swelling of the lips with an upper lip laceratio n. Nondisplaced bilateral nasal bone fractures are of unclear acuity. No other facial fracture. Anterior subluxation of both temporomandibular joints may be related to positioning. No dislocation o r mandibular fracture. Electronically signed by: Nicky Hand MD 09/30/2019 10:57 PM CDT Due to temporary technical issues with the PACS/Fluency reporting system, reports are being signed by the in house radiologist as a courtesy to ensure prompt reporting. The interpreting radiologist is f ully responsible for the content of the report.
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
== END 2019-10-01 00:02 | disposition home or self-care (01) ==
LOC: ER 21:48
PROC: 0CQ1XZZ Repair Lower Lip, External Approach (ICD-10-PCS; principal; 2019-10-01)
PROC: 0CQ0XZZ Repair Upper Lip, External Approach (ICD-10-PCS; 2019-10-01)
DX: S01.511A Laceration without foreign body of lip, initial encounter (principal); W10.9XXA Fall (on) (from) unspecified stairs and steps, initial encounter; Y93.9 Activity, unspecified; Y92.9 Unspecified place or not applicable
CPT/HCPCS: 70450; 70486; 72125; 76377; 90714; 96374; 99284; J3360